=== PATIENT | female | born 1950 | race Caucasian/White ===

== ENCOUNTER 2017-06-22 15:29 | Emergency (ER) | payer OTHER, MEDICARE ==
[2017-06-22 15:33] VITALS: BP 136/73; PULSE 78; TEMP 98; BMI 28.3
--- NOTE | 2017-06-22 15:38 | PDOC ---
History of Present Illness - General Chief Complaint: Respiratory Stated Complaint: COUGH, SORE THROAT Time Seen by Provider: 06/22/17 15:30 History Source: Patient Exam Limitations: No Limitations - History of Present Illness Initial Comments: 06/22/17 15:33 66 y/o female with cough sore throat since this morning. Non productive. No SOB or chest pain. Denies traveling or sick contacts. Recent PET scan for nodule on lung. No SOB or chest pain. No fever or chills. Has not taken anything for the cough. Severity: reports: mild Associated Symptoms: reports: cough. denies: chest pain/soreness, fever/chills , headache, shortness of breath, sinus infection Past History - Past Medical History Allergies/Adverse Reactions: Allergies Allergy/AdvReac Type Severity Reaction Status Date / Time No Known Allergies Allergy Verified 08/18/16 07:39 Home Medications: Ambulatory Orders Lamotrigine [Lamictal] 100 mg PO DAILY 02/17/15 Comfrey Carbonate [Eskalith -] 600 mg PO DAILY 02/17/15 Trazodone HCl [Desyrel -] 25 mg PO DAILY 02/17/15 Bupropion HCl [Wellbutrin -] 100 mg PO DAILY 08/18/16 Azithromycin [Zithromax -] 250 mg PO UTDICT #6 tab 06/22/17 Benzonatate [Tessalon Pearls -] 100 mg PO TID #21 capsule 06/22/17 Anemia: Yes Asthma: No Cancer: No Cardiac Disorders: No CVA: No COPD: No CHF: No Dementia: No Diabetes: No GI Disorders: No Disorders: No HTN: Yes Hypercholesterolemia: No Kidney Stones: No Liver Disease: No Psychiatric Problems: Yes (DEPRESSION) Suicide Attempt (Hx): No Seizures: No Thyroid Disease: No - Reproductive History PID: No - Psycho/Social/Smoking Cessation Hx Anxiety: Yes Suicidal Ideation: No Smoking Status: No Smoking History: Never smoked Have you smoked in the past 12 months: No Number of Cigarettes Smoked Daily: 0 Information on smoking cessation initiated: No Hx Alcohol Use: No Drug/Substance Use Hx: No Substance Use Type: Tranquilizers Respiratory Specific PMHX - Complaint Specific PMHX TB (Tuberculosis): No Review of Systems - Review of Systems Able to Perform ROS?: Yes Is the patient limited Irish proficient: No Constitutional: No: Chills, Fever HEENTM: Yes: Throat Pain Respiratory: Yes: Cough. No: Shortness of Breath Cardiac (ROS): No: Chest Pain, Irregular Heart Rate, Palpitations ABD/GI: No: Nausea, Vomiting Musculoskeletal: No: Back Pain, Muscle Pain All Other Systems: Reviewed and Negative *Physical Exam - Vital Signs Last Vital Signs Temp Pulse Resp BP Pulse Ox 98 F 78 18 136/73 98 06/22/17 15:30 06/22/17 15:30 06/22/17 15:30 06/22/17 15:30 06/22/17 15:30 - Physical Exam General Appearance: Yes: Nourished, Appropriately Dressed. No: Apparent Distress HEENT: positive: EOMI, EULOGIO, Normal ENT Inspection. negative: Pharyngeal Erythema, Sinus Tenderness Neck: positive: Trachea midline, Normal Thyroid, Supple. negative: Tender, Rigid Respiratory/Chest: positive: Lungs Clear, Normal Breath Sounds. negative: Chest Tender, Respiratory Distress Cardiovascular: positive: Regular Rhythm, Regular Rate, S1, S2, Other (no calf tenderness b/l). negative: Edema, JVD, Murmur Vascular Pulses: Femoral (R): 4+, Femoral (L): 4+, Carotid (R): 4+, Carotid (L) : 4+, Dorsalis-Pedis (R): 4+, Doralis-Pedis (L): 4+ Gastrointestinal/Abdominal: positive: Normal Bowel Sounds, Flat, Soft. negative : Tender, Organomegaly, Pulsatile Mass Lymphatic: negative: Adenopathy, Tenderness, Other Musculoskeletal: positive: Normal Inspection. 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 II-XII NML intact, Fully Oriented, Alert, Normal Mood/ Affect, Normal Response, Motor Strength 5/5 Progress Note - Progress Note Progress Note: Pt with URI, will place on Z-pack and Tessalon Perles Recent PET scan pending, no sign of PE If worsen will return to ER Pt is in agreement with plan *DC/Admit/Observation/Transfer Diagnosis at time of Disposition: Upper respiratory infection Qualifiers: URI type: unspecified URI Qualified Code(s): J06.9 - Acute upper respiratory infection, unspecified - Discharge Dispostion Condition at time of disposition: Stable Admit: No - Patient Instructions Printed Discharge Instructions: DI for Viral Upper Respiratory Infection -- Adult Additional Instructions: Fluids, rest, Motrin Z-pack as directed Kayley Chaudhari as directed If worsen return to ER
== END 2017-06-22 16:05 | disposition home or self-care (01) ==
LOC: FER 15:29
DX: J02.9 Acute pharyngitis, unspecified (principal); I10 Essential (primary) hypertension; F32.9 Major depressive disorder, single episode, unspecified; D64.9 Anemia, unspecified
CPT/HCPCS: 99283-25

== ENCOUNTER 2025-04-29 23:17 | Emergency (ER) | payer OTHER, MEDICARE ==
[2025-04-29 23:45] VITALS: TEMP 97.6; BMI 27.4
[2025-04-30 00:28] LABS: ABSOLUTE IMMATURE GRANULOCYTES 0.04 x10^3/uL (0.0-0.031); BASOPHILS # 0.07 x10^3/uL (0.01-0.08); EOSINOPHIL % 2.4 % (0.7-5.8); EOSINOPHILS # 0.25 x10^3/uL (0.04-0.36); MCHC 33.1 g/dl (32.2-35.5); MEAN CELL VOLUME 85.0 fl (79.4-94.8); MEAN PLT VOLUME 9.0 fl (9.4-12.3); MONOCYTE # 1.04 x10^3/uL (0.24-0.86); MONOCYTE % 9.9 % (4.7-12.5); RDW 13.2 % (12.4-16.6)
[2025-04-30 00:38] LABS: URINE APPEARANCE CLEAR; URINE BILIRUBIN NEGATIVE (NEGATIVE); URINE COLOR YELLOW; URINE GLUCOSE (UA) NEGATIVE (NEGATIVE)
[2025-04-30 00:39] LABS: URINE KETONE NEGATIVE (NEGATIVE)
[2025-04-30 00:40] LABS: URINE LEUK ESTERASE SMALL (NEGATIVE); URINE NITRITE NEGATIVE (NEGATIVE); URINE PROTEIN NEGATIVE (NEGATIVE); URINE UROBILINOGEN 0.2 mg/dL (0.2-1.0)
[2025-04-30 00:54] LABS: CO2 26.0 mmol/L (21-32); GLUCOSE,RANDOM 100.0 mg/dL (74-106)
[2025-04-30 00:57] LABS: CREATININE 1.2 mg/dL (0.55-1.3); SGOT/AST 24.0 U/L (15-37); SGPT/ALT 25.0 U/L (13-61)
[2025-04-30 00:58] LABS: TOT PROT 6.6 g/dl (6.4-8.2)
[2025-04-30 00:59] LABS: ALK PHOS 81.0 U/L (45-117)
[2025-04-30 01:44] LABS: HIV INTERPRETATION NEGATIVE (NEGATIVE)
[2025-04-30 01:46] LABS: HCV DIAGNOSTIC IN-HOUSE W/RFLX NON-REACTIVE (NONREACTIVE)
[2025-04-30] MEDS: SODIUM CHLORIDE 0.9% 500 ML INFUS.BAG IV ONE (01:46)
[2025-04-30 03:16] VITALS: BP 130/76; PULSE 80; RESP 18
== END 2025-04-30 03:16 | disposition home or self-care (01) ==
LOC: JER 23:17
DX: E87.1 Hypo-osmolality and hyponatremia (principal); R53.83 Other fatigue; R53.1 Weakness; R94.31 Abnormal electrocardiogram [ECG] [EKG]
CPT/HCPCS: 36415; 80053; 81003; 83735; 83930; 83935; 84300; 85025; 86803; 87086; 87389; 93005; 93010; 99284-25